=== PATIENT | male | born 1940 | race Caucasian/White ===

== ENCOUNTER 2020-06-29 15:18 | Emergency (ER) | payer MEDICARE, SELFPAY ==
[2020-06-29 15:25] VITALS: BP 148/59; PULSE 96; RESP 18; TEMP 37.2; O2SAT 97; BMI 21.5
--- NOTE | 2020-06-29 15:36 | HMH.EDGENADL ---
ED Disposition Clinical Impression: Hyperglycemia, Weakness, Chronic anemia, Weight loss Diabetes mellitus, type 2 Qualifiers: Diabetes mellitus [facility] insulin use: without [facility] use Diabetes mellitus complication status: without complication Qualified Code(s): E11.9 - Type 2 diabetes mellitus without complications Hematuria Qualifiers: Hematuria type: unspecified type Qualified Code(s): R31.9 - Hematuria, unspecified Disposition: Home, Self-Care Condition on Discharge: Fair Instructions: DI for Muscle Weakness Additional Instructions: Continue your current medications. Rest and drink plenty of fluids. See Dr. Mendosa tomorrow as scheduled. Follow-up with Dr. Simmons for blood in urine. You are being provided with a list of physicians available for follow-up of your condition. Please call a physician on this list to arrange a follow-up appointment as soon as possible. Referrals: Jesse Mendosa [Primary Care Provider] - - Critical Care Critical Care Time: No Attestation: On , the high probability of a clinically significant, sudden or life threatening deterioration of the following system(s) required my full and direct attention, intervention and personal management. The time I documented below is in addition to time spent performing reported procedures but includes the following listed in this critical care notation. Medical Decision Making - Medical Records Medical records reviewed: Yes: I reviewed the patient's medical records. MR Comment: [facility] record reviewed - Brenton Garcia Pt receiving controlled substance: No Vital Signs: 06/29/20 15:25 06/29/20 16:50 06/29/20 17:54 Temperature 99.0 F Temperature Source Oral Pulse Rate Pulse Rate [Right Radial] 96 H 92 H 87 Respiratory Rate 18 18 18 Blood Pressure Blood Pressure [Right Arm] 148/59 H 126/62 148/68 H Blood Pressure Mean [Right Arm] 88 83 94 Blood Pressure Source [Right Arm] Automatic Cuff Automatic Cuff Automatic Cuff Blood Pressure Position Blood Pressure Position [Right Arm] Sitting Sitting Sitting 02 Sat by Pulse Oximetry 97 96 98 Oxygen Delivery Method Room Air Room Air Room Air 06/29/20 18:49 Temperature 99.0 F Temperature Source Oral Pulse Rate 82 Pulse Rate [Right Radial] Respiratory Rate 18 Blood Pressure 126/62 Blood Pressure [Right Arm] Blood Pressure Mean [Right Arm] Blood Pressure Source [Right Arm] Blood Pressure Position Sitting Blood Pressure Position [Right Arm] 02 Sat by Pulse Oximetry Oxygen Delivery Method Room Air - Lab Data Lab results reviewed: Yes: I reviewed the patient's lab results. Lab Results 06/29/20 15:42: WBC 5.4, RBC 2.47 L, Hgb 8.8 L, Hct 26.5 L, MCV 107.3 H, MCH 35.8 H, MCHC 33.4, RDW 17.2, Plt Count 399, MPV 7.3 L, Neut % (Auto) 89.6 H, Lymph % (Auto) 7.3 L, [place] % (Auto) 2.3, Eos % (Auto) 0.4, Baso % (Auto) 0.3, Neut # (Auto) 4.9, Lymph # (Auto) 0.4 L, [place] # (Auto) 0.1, Eos # (Auto) 0.0, Baso # (Auto) 0.0, Total Counted 100, Neutrophils % (Manual) 92 H, Lymphocytes % (Manual) 4 L, Monocytes % (Manual) 3, Eosinophils % (Manual) 1, Platelet Estimate Normal, Anisocytosis 2+, Macrocytosis 2+ 06/29/20 15:42: Sodium 133 L, Potassium 5.4 H, Chloride 99, Carbon Dioxide 20 L, Anion Gap 19.4 H, BUN 42 H, Creatinine 1.50 H, Estimated Creat Clear 41, Estimated GFR 45 L, Est GFR ( Amer) 55 L, Glucose 412 H*, Calcium 10.1, Total Bilirubin 1.2, AST 28, ALT 19, Alkaline Phosphatase 79, Troponin I < 0.01, Total Protein 6.9, Albumin 4.2, Globulin 2.7, Albumin/Globulin Ratio 1.6 06/29/20 15:42: Lactate 1.1 06/29/20 15:42: SARS-CoV-2 IgG Ab (Rapid) Negative, SARS-CoV-2 IgM Ab (Rapid) Negative 06/29/20 15:42: Total Creatine Kinase 41 L 06/29/20 16:35: Urine Color Yellow, Urine Appearance Clear, Urine pH 5.5, Ur Specific [place] 1.015, Urine Protein Negative, Urine Glucose (UA) 3+, Urine Ketones Trace, Urine Blood 3+, Urine Nitrate Negative, Urine Bilirubin Negativ
--- NOTE | 2020-06-29 15:49 | ECG_ITS ---
APPROVED REPORT Exam: Resting ECG HR:160 bpm ECG Measurements Heart Rate 160 AXES OR 158 P 42 QRSd 70 QRS -39 QT 312 T 44 QTc 509 Conclusion Sinus tachycardia Left axis deviation LAHB Abnormal ECG Electronically signed by : Domingo Alexander, 06/30/2020 09:24:46
[2020-06-29 15:59] LABS: Basophils % 0.3 % (0.1-2.0); Eosinophils % 0.4 % (0.1-12.0); Hematocrit 26.5 % (42.0-52.0); Hemoglobin 8.8 g/dL (14.1-18.0); Lymphocytes # 0.4 K/mm3 (0.7-4.5); Lymphocytes % 7.3 % (10-50); Mean Corpuscular HGB Conc 33.4 g/dL (31.8-35.4); Mean Corpuscular Hemoglobin 35.8 pg (27.0-31.2); Mean Corpuscular Volume 107.3 fl (80-94); Mean Platelet Volume 7.3 fl (7.4-10.4); Monocytes # 0.1 K/mm3 (0.1-1.0); Monocytes % 2.3 % (1.7-9.3); Neutrophils # 4.9 K/mm3 (1.8-7.8); Neutrophils % 89.6 % (37.0-80.0); Platelet Count 399 K/mm3 (142-424); Red Blood Count 2.47 M/mm3 (4.60-6.20); Red Cell Distribution Width 17.2 % (11.5-17.5); White Blood Count 5.4 K/mm3 (4.8-10.8)
--- NOTE | 2020-06-29 15:59 | XR_ITS ---
PROCEDURE: XR CHEST PORTABLE Referring Doctor: Herbert Kirkpatrick Patient Age:80Y CLINICAL HISTORY: weakness COMPARISON: No exams were available for comparison FINDINGS: AP portable CXR upright. Performed today with no previous chest studies for comparison There is slight coarsening lung markings including subtle accentuated interstitial pattern towards the right infrahilar region and medial right lung base. Subtle feature. Requires correlation more likely reflecting some mild chronic fibrotic changes doubt but cannot totally exclude subtle early infiltrate. Suggestion mild hyper expansion at the upper lung luong which may reflect early emphysematous changes here. Left lung base with upper normal markings but upper lung luong and apices appear clear. There is normal pulmonary vascularity. The heart is upper normal in size with heart size slightly accentuated by the AP projection. Iza and mediastinal structures satisfactory. Chest wall unremarkable. IMPRESSION: Subtle coarsening of lung markings and interstitial markings right infrahilar region and towards right lung base-favor more likely reflect some minor chronic fibrotic changes. No convincing no definitive acute infiltrate . However if chest or respiratory symptoms progress a follow-up PA and lateral chest suggested Dictated by: Augie Cesar MD 06/29/2020 21:16 Augie Cesar MD in [place] 06/29/2020 21:16
--- NOTE | 2020-06-29 16:00 | XR_ITS ---
PROCEDURE: XR PELVIS 1-2V Referring Doctor: Herbert Kirkpatrick Patient Age:80Y CLINICAL INDICATION: falls weakness and recent falls COMPARISON: CR XR CHEST PORTABLE from 06/29/2020 TECHNIQUE: XR Pelvis AP View FINDINGS: AP osseous pelvis performed: 2 images of such submitted Osseous pelvis intact with no fracture or dislocation evident.. Femoral head and neck appear intact but hip joint spaces are fairly well maintained with only slight hypertrophic lipping at the margin of acetabulum suggesting scant early degenerative changes. The iliac bone sacrum SI joints superior and inferior ramus appear intact but no lytic or blastic change. The SI joints have an unremarkable appearance. Unremarkable soft tissues. IMPRESSION: Osseous pelvis intact. No acute findings. Dictated by: Augie Cesar MD 06/29/2020 16:33 Augie Cesar MD in [place] 06/29/2020 16:33
[2020-06-29 16:04] LABS: MANUAL DIFFERENTIAL MANUAL DIFFERENTIAL (MANUAL DIFF)
[2020-06-29 16:08] LABS: Lactic Acid 1.1 mmol/L (0.7-2.1)
[2020-06-29 16:09] LABS: Alanine Aminotransferase 19 U/L (12-78); Albumin Level 4.2 g/dl (3.5-5.0); Albumin/Globulin Ratio 1.6 (1.1-1.8); Alkaline Phosphatase 79 U/L (38-126); Anion Gap 19.4 mEq/L (5-15); Aspartate Amino Transferase 28 U/L (17-59); Bilirubin,Total 1.2 mg/dl (0.2-1.3); Blood Urea Nitrogen 42 mg/dl (9-20); Calcium 10.1 mg/dl (8.4-10.2); Carbon Dioxide 20 mmol/L (22.0-30.0); Chloride 99 mmol/L (98-107); Creatinine Clearance Estimated 41 mL/min (50-200); Estimated Glomerular Filt Rate 45 ml/min (>60); GFR (African American) 55 ML/MIN (>60); Globulin 2.7 g/dL (1.3-3.2); Potassium 5.4 mmoL/L (3.5-5.1); Sodium 133 mmol/L (136-145); Total Protein,Serum 6.9 g/dl (6.3-8.2)
[2020-06-29 16:11] LABS: Glucose 412 mg/dl (74-100)
--- NOTE | 2020-06-29 16:11 | PC.NURSE ---
CRITICAL GLUCOSE OF [address] BONILLA
[2020-06-29 16:14] LABS: Anisocytosis 2+; Eosinophils % 1 % (0-3); Lymphocytes % 4 % (10-50); Macrocytosis 2+; Monocytes % 3 % (2-9); Neutrophils % 92 % (42-76); Platelet Estimate Normal; Total Cells Counted 100
--- NOTE | 2020-06-29 16:17 | PC.NURSE ---
contacted [facility] to request ER records from pts visit on of last week per ER MD request
[2020-06-29 16:22] LABS: Troponin I < 0.01 ng/ml (0.00-0.034)
[2020-06-29 16:26] LABS: Coronavirus 19 IgG Antibody Negative (Negative); Coronavirus 19 IgM Antibody Negative (Negative)
[2020-06-29 16:40] LABS: Creatine Kinase 41 U/L (55-170)
[2020-06-29 16:42] LABS: Microscopic, Urine URINE MICROSCOPIC (MICROSCOPIC)
[2020-06-29 16:43] LABS: Appearance,Urine CLEAR (Clear); Bilirubin,Urine Negative (Negative); Blood, Urine 3+ (Negative); Color,Urine YELLOW (Yellow); Glucose,Urine (UA) 3+ (Negative); Ketones,Urine TRACE (Negative); Leukocyte Esterase,Urine Negative (Negative); Nitrate,Urine Negative (Negative); PH,Urine 5.5 (5.0-8.5); Protein,Urine Negative (Negative); Specific Gravity, Urine 1.015 (1.005-1.030); Urobilinogen,Urine 0.2 EU/dl (0.2)
[2020-06-29 16:50] VITALS: BP 126/62; PULSE 92; RESP 18; O2SAT 96
[2020-06-29 16:53] LABS: RBC,Urine 20-50 #/hpf (0-3); Squamous Epithelial Cell,Urine Occasional #/hpf (0-5)
--- NOTE | 2020-06-29 17:34 | PC.NURSE ---
fsbs [id number]
[2020-06-29 17:49] LABS: POC Glucose,Bedside 382 (70-110)
[2020-06-29 17:54] VITALS: BP 148/68; PULSE 87; RESP 18; O2SAT 98
--- NOTE | 2020-06-29 17:55 | PC.NURSE ---
pt ambulated with staff assist x1 to restroom and back, tolerated well. pt reports he has a cane at home, will notify MARY PHIPPS of this
[2020-06-29 18:49] VITALS: BP 126/62; PULSE 82; RESP 18; TEMP 37.2; O2SAT 96
== END 2020-06-29 18:40 | disposition home or self-care (01) ==
PROVIDERS: Emergency Provider Emergency Medicine; PCP Family Medicine
DX: R53.83 Other fatigue (principal); E11.65 Type 2 diabetes mellitus with hyperglycemia; R63.4 Abnormal weight loss; D64.9 Anemia, unspecified; R31.9 Hematuria, unspecified; Z20.828 Contact with and (suspected) exposure to other viral communicable diseases
CPT/HCPCS: 71045; 72170; 80053; 81001; 82550; 82962; 83605; 84484; 85007; 85025; 86328; 87040; 93005; 96365; 96372; 99284